=== PATIENT | female | born 1970 | race Caucasian/White ===

== ENCOUNTER 2019-08-11 06:08 | Day surgery (SDC) | payer OTHER ==
[~2019-08-11] VITALS: Ht 149.9 cm; Wt 78.6 kg
[~2019-08-11 06:08] MED LIST: SODIUM CHLORIDE 0.9% 1,000 ML ONE
[2019-08-11] MEDS ORDERED: SODIUM CHLORIDE 0.9% 1,000 ML IV ONE (06:30)
[2019-08-11] MEDS ORDERED: ADV100 IH (07:19)
[2019-08-11] MEDS ORDERED: IPRA4AER IH (07:19)
[2019-08-11] MEDS ORDERED: DILT30 PO (07:19)
[2019-08-11] MEDS ORDERED: CHOL100018 PO (07:19)
[2019-08-11] MEDS ORDERED: OMEP20 PO (07:19)
[2019-08-11] MEDS ORDERED: LISI-662 PO (07:19)
[2019-08-11] MEDS ORDERED: MONT10TA21 PO (07:19)
[2019-08-11] MEDS ORDERED: HYDR-1475 PO (07:19)
[2019-08-11] MEDS ORDERED: FLUT16H NASAL (07:19)
[2019-08-11] MEDS ORDERED: MIDAZOLAM HCL 2 MG/2 ML VIAL ONE (07:31)
[2019-08-11] MEDS ORDERED: FentaNYL CITRATE-PF 100 MCG/2 ML VIAL ONE (07:32)
[2019-08-11] MEDS ORDERED: MethylPREDNISolone SOD SUCC 125 MG/2 ML VIAL IVP ONE (08:45)
[2019-08-11] MEDS ORDERED: MethylPREDNISolone SOD SUCC 125 MG/2 ML VIAL ONE (08:49)
[2019-08-11] MEDS ORDERED: LIDOCAINE 4% 50 ML SOLUTION ONE (17:11)
[2019-08-11] MEDS ORDERED: LIDOCAINE 2% 30 ML JELLY ONE (17:11)
[2019-08-11] MEDS ORDERED: ALBUTEROL SULFATE 2.5 MG/0.5 ML NEB SOLUTION NEB ONE (17:11)
[2019-08-11] MEDS ORDERED: BENZOCAINE 20% 50 MCG/SPRAY 57 GM ONE (17:11)
[2019-08-11] MEDS ORDERED: OXYGEN THERAPY IH SCH (20:00)
== END 2019-08-11 10:05 | disposition home or self-care (01) ==
LOC: SURGERY 06:08
PROVIDERS: ATTEND Internal Medicine Critical Care Medicine
DX: R05 Cough (principal); R04.2 Hemoptysis; J98.8 Other specified respiratory disorders; J34.89 Other specified disorders of nose and nasal sinuses; J38.4 Edema of larynx; B37.0 Candidal stomatitis; I10 Essential (primary) hypertension; J45.909 Unspecified asthma, uncomplicated; Z98.890 Other specified postprocedural states; Z79.899 Other long term (current) drug therapy; Z87.891 Personal history of nicotine dependence; R19.00 Intra-abdominal and pelvic swelling, mass and lump, unspecified site
CPT/HCPCS: 31623; 31624; 71045; 87015; 87070; 87101; 87205; 87206; 87220; 88108; 88184; 88185; 88312; J2250; J2930; J3010; J7030